=== PATIENT | female | born 1960 | race Caucasian/White ===

== ENCOUNTER 2016-08-13 09:59 | Emergency (ER) | payer OTHER ==
[2016-08-13] MEDS ORDERED: Ketorolac 60 MG/2 ML SDV IM ONE (10:22)
--- NOTE | 2016-08-13 10:50 | EDM.PDOC ---
ED HPI Trauma - General Stated Complaint: LEFT KNEE Time Seen by Provider: 08/13/16 09:59 Source: Reports: Patient, Family History Limitations: Reports: Physical impairment (left knee pain) - History of Present Illness INITIAL COMMENTS - FREE TEXT/NARRATIVE: 55 years old w f came to the ed after she was "working out" and felt sudden pain at her left ant knee, unable to ambulate. Denies direct Trauma. pain gets worse when applying weight to left knee. No f/c/n/v Symptom Onset Date: 08/13/16 Symptom Onset Time: 09:00 Occurred Where: home Method of Injury: unknown Severity: moderate Pain/Injury Location: Reports: lower extremity, left Associated Symptoms: Reports: denies other symptoms Allergies/ADRs: Allergies No Known Allergies Allergy (Verified 08/13/16 10:56) Home Medications: Ambulatory Orders Levothyroxine 150 mcg PO DAILY 08/13/16 [Confirmed 08/13/16] Review of Systems - Review of Systems Review Of Systems: See Below Constitutional: Reports: no symptoms Eyes: Reports: no symptoms Ears: Reports: no symptoms Nose: Reports: no symptoms Mouth/Throat: Reports: no symptoms Respiratory: Reports: No Symptoms Cardiovascular: Reports: no symptoms GI/Abdominal: Reports: No symptoms Genitourinary: Reports: no symptoms Musculoskeletal: Reports: joint pain (knee), muscle pain Skin: Reports: no symptoms Neurological: Reports: No Symptoms Psychiatric: Reports: no symptoms Trauma Exam - Physical Exam Exam: See Below Exam Limited By: No limitations General Appearance: Reports: alert, WD/WN, mild distress Head: Reports: atraumatic, normocephalic Eyes: bilateral eye: EOMI, normal inspection, PERRL Ears: Reports: normal external exam, normal canal, hearing grossly normal, normal TMs Nose: Reports: normal inspection, normal mucousa, no blood Throat/Mouth: Reports: Normal inspection, Normal lips, Normal teeth, Normal gums , Normal oropharynx, Normal voice, No airway compromise Neck: Reports: non-tender, full range of motion, normal alignment, normal inspection Respiratory Exam: Reports: no respiratory distress, lungs clear, normal breath sounds Cardiovascular: Reports: normal peripheral pulses, regular rate, rhythm, no edema, no gallop, no JVD, no murmur, no rub GI/Abdominal: Reports: normal bowel sounds, soft, non tender, no organomegaly, no distention, no abnormal bruit, no mass (Female) Exam: Deferred Rectal (Female) Exam: Deferred Back: Reports: full range of motion, normal inspection, non-tender Extremities: Reports: no evidence of injury, normal range of motion, no pedal edema, pelvis stable, pain with movement, unable to bear weight Neurologic: Reports: cms expert II-XII nml as tested, no motor/sensory deficits, alert , normal mood/affect, oriented x 3 Skin: Reports: Normal color, Warm/dry - [place] Coma Score Best Eye Response ([place]): (4) open spontaneously Best Verbal Response ([place]): (5) oriented Best Motor Response (Emil): (6) obeys commands [place] Total: 15 Course - Vital Signs Text/Narrative:: 55 years old w f came to the ed after she was "working out" and felt sudden pain at her left ant knee, unable to ambulate. Denies direct Trauma. pain gets worse when applying weight to left knee. No f/c/n/v Last Recorded V/S: Last Vital Signs Temp 36.6 C 08/13/16 11:12 Pulse 78 08/13/16 11:12 Resp 16 08/13/16 11:12 BP 147/88 H 08/13/16 11:12 Pulse Ox 99 08/13/16 11:12 - Orders/Labs/Meds Orders: Active Orders 24 hr Category Date Time Status Knee 3V Lt [CR] Stat Exams 08/13/16 10:23 Taken Ice Therapy [OM.PC] Routine Oth 08/13/16 10:23 Ordered Meds: Medications Discontinued Medications Generic Name Dose Route Start Last Admin Trade Name Winston PRN Reason Stop Dose Admin Ketorolac Tromethamine 60 mg 08/13/16 10:22 08/13/16 10:56 Toradol IM 08/13/16 10:23 60 mg ONETIME ONE Administration Departure - Departure Time of Disposition: 11:59 Disposition: Home, Self-Care 01 Condition: good Clinical Impression: Patellar tendon strain Qualifiers: Encounter type: initial encounter Laterality: left Qualified Code(s): S86.812A - Strain of other muscle(s) and tendon(s) at lower leg level, left leg, initial encounter Referrals: Mali Nieves NP [Primary Care Provider] - Scot Claudio MD [Physician] - Forms: Return to Work/School Form Additional Instructions: Please apply ice to the affected area, plaese take motrin as recommended, please f/u in am with Ortho, please come back to the ed if symptoms get acutely worse. - My Orders Last 24 Hours: My Active Orders 08/13/16 10:23 Knee 3V Lt [CR] Stat Ice Therapy [OM.PC] Routine - Assessment/Plan Last 24 Hours: My Active Orders 08/13/16 10:23 Knee 3V Lt [CR] Stat Ice Therapy [OM.PC] Routine
[2016-08-13 11:18] VITALS: BP 147/88
--- NOTE | 2016-08-14 11:26 | CR ---
INDICATION: Left knee pain, swollen, no trauma. LEFT KNEE: Three views of the left knee revealed mild hypertrophic degenerative changes off the femur and tibia, more prominent laterally, with hypertrophic changes also noted at the intercondylar spines and intercondylar notch, as well as the patellofemoral joint to a mild degree. There does appear to be some narrowing of the patellofemoral joint space laterally. Femorotibial joint spaces appear to be well maintained; however, this apparently was not obtained upright. Therefore, an upright view of both knees in AP projection is recommended for further evaluation. An acute fracture or dislocation was not seen. IMPRESSION: Osteoarthritis, suggestion of some mild loss of joint space at the patellofemoral joint laterally. Upright AP view of the knees bilaterally recommended for further evaluation of femorotibial joint space. [facility]
== END 2016-08-13 12:08 | disposition home or self-care (01) ==
LOC: FB.ED 09:59
DX: S76.112A Strain of left quadriceps muscle, fascia and tendon, initial encounter (principal); Z79.899 Other long term (current) drug therapy; X58.XXXA Exposure to other specified factors, initial encounter; Y92.009 Unspecified place in unspecified non-institutional (private) residence as the place of occurrence of the external cause
CPT/HCPCS: 73562; 96372; 99283; J1885

== ENCOUNTER 2016-08-22 07:06 | Day surgery (SDC) | payer OTHER ==
[2016-08-22] MEDS ORDERED: Lactated Ringers 1,000 ML IV SCH ×2 (07:15→10:15)
[2016-08-22] MEDS ORDERED: Sodium Chloride 0.9% 10 ML Syringe FLUSH PRN (07:15)
[2016-08-22] MEDS ORDERED: Ketorolac 15 MG/ML SDV IVPUSH ONE (09:00)
[2016-08-22] MEDS ORDERED: diphenhydrAMINE 50 MG/ML SDV IV ONE (09:00)
[2016-08-22] MEDS ORDERED: Propofol 200 MG/20 ML SDV IV ONE (09:00)
[2016-08-22] MEDS ORDERED: fentaNYL 100 MCG/2 ML SDV IV ONE (09:00)
[2016-08-22] MEDS ORDERED: Lactated Ringers 1,000 ML IV ONE (09:00)
[2016-08-22] MEDS ORDERED: Midazolam 1 MG/ML 2 ML SDV IV ONE (09:00)
[2016-08-22] MEDS ORDERED: Dexamethasone 4 MG/ML 5 ML MDV IVPUSH ONE (09:00)
[2016-08-22] MEDS ORDERED: Scopolamine 1.5 MG Transdermal Patch TOP ONE (09:00)
[2016-08-22] MEDS ORDERED: Morphine 10 MG/ML Syringe IVPUSH ONE (09:00)
[2016-08-22] MEDS ORDERED: Ondansetron 4 MG/2 ML SDV IVPUSH ONE (09:00)
[2016-08-22] MEDS ORDERED: Morphine 10 MG/ML Syringe ONE ×2 (09:04→09:19)
[2016-08-22] MEDS ORDERED: Acetaminophen/HYDROcodone 325-5 MG Tab PO PRN (10:14)
[2016-08-22 12:42] VITALS: BP 138/73
--- NOTE | 2016-08-22 14:18 | OR ---
DATE OF OPERATION: 08/22/2016 SURGEON: Scot Claudio MD PREOPERATIVE DIAGNOSIS: Degenerative tear, medial meniscus, left knee. POSTOPERATIVE DIAGNOSES: 1. Degenerative tear, medial meniscus, left knee. 2. Chondromalacia patellofemoral articulation, left knee. 3. Multiple loose bodies, left knee. PROCEDURES PERFORMED: 1. Diagnostic arthroscopy, left knee. 2. Partial medial meniscectomy, left knee. 3. Joint debridement, left knee with trimming of chondromalacia, patellofemoral articulation, and removal of multiple loose bodies. ANESTHESIA: General. DESCRIPTION OF PROCEDURE: The patient was taken to the operating room, placed on the operating room table in a supine position. General anesthetic was then administered. A tourniquet was then placed from the left thigh near the inguinal area. The left lower extremity was then elevated and the tourniquet was inflated to 250 mmHg pressure. End of the table was then dropped to 90 degrees and the leg positioned appropriately in the leg carrasco. A sterile ChloraPrep was then performed from the inferior margin of the leg carrasco to the tip of the toes. Sterile draping procedure was then carried out. Four incisions were then made over the left knee. They were anterior superomedial, anterior superolateral, anterior inferomedial, and anterior inferolateral. During the operative procedure, the inflow cannula was inserted to both the anterior superomedial portal and the anterior superolateral portal, so the complete examination and evaluation of the suprapatellar pouch could be carried out. Once the inflow cannula was inserted, a 100 mL of sterile normal saline was infused into the knee. Operating scope was introduced and then examination revealed several small multiple loose bodies approximately four in the medial compartment of the left knee. These were removed without difficulty. The patient also had a degenerative tear of the medial meniscus and this was cut back to a stable border, about 10% of meniscal surface had to be removed. No significant chondromalacia. Examination of the intercondylar notch through the anterior cruciate ligament to be intact and taut to probing, normal bulk and tensile strength. Significant hyperemia was noted in the ligamentum mucosum and this was removed without difficulty. Examination of lateral compartment revealed a small amount of tearing in the posterior horn and lateral meniscus and this was trimmed back at no charge to the patient. There was, however, a large loose body, approximately a centimeter by half a cm under the knee of the posterior portion of lateral meniscus. This was removed without difficulty. No chondromalacia. No other loose bodies were noted. Examination of the suprapatellar pouch revealed a moderate amount of chondromalacia patellofemoral articulation more superiorly. There was actually an area of delamination of a piece of the cartilage off the superior portion of the patellofemoral groove that was hinging. We removed this with a large grasping forceps. The area of the patellofemoral articulation and the suprapatellar pouch were then debrided with a curved Synovator. Portal sites were then changed and we cleaned the area from another angle. Approximately 20% patellofemoral articulation was not to 30% involved, most of it that was severe probably half of the delamination not quite down to bone was on the superior part of the patellofemoral groove. The chondromalacia of the retropatellar surface was more of a fine pair like phenomenon that was trimmed back and involved about 30% to 40% of the patellar surface. Patella tracked well. Upon completion of the procedure, the knee joint was liberally irrigated, all instrumentation removed, sterile dressings applied, leg carrasco removed, and tourniquet deflated. The patient had the incisions closed with 2-0 Ethibond and then Marcaine and morphine were injected. COMPLICATIONS: None. ESTIMATED BLOOD LOSS: Approximately 7 mL. After the dressings were applied, the patient was taken to the recovery room. /[id number] EVAN/CORY
== END 2016-08-22 11:50 | disposition home or self-care (01) ==
LOC: FB.SDS 07:06
PROVIDERS: ATTEND Orthopaedic Surgery
PROC: 0SBD4ZZ Excision of Left Knee Joint, Percutaneous Endoscopic Approach (ICD-10-PCS; principal; 2016-08-22)
DX: M23.204 Derangement of unspecified medial meniscus due to old tear or injury, left knee (principal); M23.252 Derangement of posterior horn of lateral meniscus due to old tear or injury, left knee; M94.262 Chondromalacia, left knee; F41.9 Anxiety disorder, unspecified; E03.9 Hypothyroidism, unspecified; Z79.899 Other long term (current) drug therapy; E78.5 Hyperlipidemia, unspecified
CPT/HCPCS: 29881; 88300; A9270; J1100; J1200; J1885; J2250; J2270; J2405; J2704; J3010; J7120

== ENCOUNTER 2021-08-05 06:32 | Day surgery (SDC) | payer BC, OTHER ==
[~2021-08-05 06:32] MED LIST: Lactated Ringers 1,000 ML IV SCH; Sodium Chloride 0.9% 10 ML Syringe FLUSH PRN
[2021-08-05] MEDS ORDERED: Propofol 200 MG/20 ML SDV IV ONE (06:33)
[2021-08-05 09:12] VITALS: BP 123/88; PULSE 66
== END 2021-08-05 08:30 | disposition home or self-care (01) ==
LOC: FB.SDS 06:32
PROVIDERS: ATTEND Surgery
DX: Z12.11 Encounter for screening for malignant neoplasm of colon (principal); K57.30 Diverticulosis of large intestine without perforation or abscess without bleeding; E03.9 Hypothyroidism, unspecified; H54.7 Unspecified visual loss; E78.00 Pure hypercholesterolemia, unspecified; E66.9 Obesity, unspecified; Z68.34 Body mass index [BMI] 34.0-34.9, adult; Z80.0 Family history of malignant neoplasm of digestive organs; Z90.49 Acquired absence of other specified parts of digestive tract; Z98.890 Other specified postprocedural states; Z79.890 Hormone replacement therapy; Z79.899 Other long term (current) drug therapy; Z87.19 Personal history of other diseases of the digestive system
CPT/HCPCS: 00812; 45378; J2704; J7120

== ENCOUNTER 2021-10-30 15:33 | Emergency (ER) | payer BC ==
[2021-10-30 16:10] VITALS: PULSE 115
[2021-10-30 16:20] LABS: ESTIMATED GFR 50 (>60)
[2021-10-30] MEDS ORDERED: cloNIDine 0.1 MG Tab PO ONE (16:59)
[2021-10-30 17:03] VITALS: BP 173/94
== END 2021-10-30 17:40 | disposition home or self-care (01) ==
LOC: FB.ED 15:33
DX: R07.89 Other chest pain (principal); I10 Essential (primary) hypertension; E78.00 Pure hypercholesterolemia, unspecified; E03.9 Hypothyroidism, unspecified; E66.9 Obesity, unspecified; Z68.32 Body mass index [BMI] 32.0-32.9, adult; Z79.899 Other long term (current) drug therapy
CPT/HCPCS: 36415; 71045; 80053; 84484; 85025; 93005; 99285-25; A9270-GY